=== PATIENT | male | born 1970 | race Two or more races ===

== ENCOUNTER → 2025-03-03 | Outpatient (CLI) | payer BC, SELFPAY ==
[2025-03-03 09:10] LABS: Alanine Aminotransferase 61 U/L (10-49); Albumin, Serum 4.6 gm/dL (3.5-5.0); Albumin/Globulin Ratio 1.6 (1.2-2.2); Alkaline Phosphatase 55 U/L (46-116); Anion Gap 9 (7-16); Aspartate Amino Transferase 48 U/L (0-34); BUN/Creatinine Ratio 13 Ratio (12-20); Bilirubin,Total 0.9 mg/dL (0.3-1.2); Blood Urea Nitrogen 13 mg/dL (9-23); Cardiac Risk Estimate 3.8 RATIO (4.0-6.7); Chloride 102 mMol/L (98-107); Cholesterol 182 mg/dL (132-200); Globulin 2.9 gm/dL (2.3-3.5); Glucose 119 mg/dL (74-106); HDL Cholesterol 48 mg/dL (40-60); LDL Cholesterol,Calculated 103 mg/dL (0-130); Osmolality,Calculated 276 (275-295); Potassium 5.7 mMol/L (3.4-5.1); Sodium 138 mMol/L (136-145); Thyroid Stimulating Hormone 0.49 uIU/mL (0.55-4.78); Total Protein 7.5 gm/dL (5.7-8.2); Triglycerides 154 mg/dL (30-150); eGFR > 60 See Note
== END | disposition home or self-care (01) ==
PROVIDERS: PCP Internal Medicine; Referring Provider Internal Medicine; Visit Provider Internal Medicine
DX: I10 Essential (primary) hypertension (principal); E78.5 Hyperlipidemia, unspecified; E03.9 Hypothyroidism, unspecified
CPT/HCPCS: 36415; 80053; 80061; 84443

== ENCOUNTER → 2025-05-07 | Outpatient (CLI) | payer BC, SELFPAY ==
[2025-05-07 11:39] LABS: Albumin, Serum 4.5 gm/dL (3.5-5.0); Anion Gap 11 (7-16); BUN/Creatinine Ratio 18 Ratio (12-20); Blood Urea Nitrogen 16 mg/dL (9-23); Calcium 9.4 mg/dL (8.3-10.6); Calcium (Corrected) 9.4 mg/dL (8.5-10.1); Carbon Dioxide 24.9 mMol/L (20.0-31.0); Chloride 103 mMol/L (98-107); Creatinine (Component) 0.9 mg/dL (0.6-1.3); Glucose 115 mg/dL (74-106); Osmolality,Calculated 279 (275-295); Phosphorous 2.8 mg/dL (2.4-5.1); Potassium 4.2 mMol/L (3.4-5.1); Sodium 139 mMol/L (136-145); eGFR > 60 See Note
== END | disposition home or self-care (01) ==
LOC: COPL 10:26
PROVIDERS: PCP Internal Medicine; Referring Provider Internal Medicine; Visit Provider Internal Medicine
DX: I10 Essential (primary) hypertension (principal)
CPT/HCPCS: 36415; 80069

== ENCOUNTER → 2025-09-23 | Outpatient (CLI) | payer BC, SELFPAY ==
[2025-09-23 08:10] LABS: Collection Type, Urine Clean Catch; Squamous Epithelial Cell,Urine 0 /hpf (0-5)
[2025-09-23 08:33] LABS: Basophils # (Auto) 0.0 Thou/mm3 (0.0-0.2); Basophils % (Auto) 1 % (0-2.5); Eosinophils # (Auto) 0.2 Thou/mm3 (0.0-0.5); Eosinophils % (Auto) 4 % (0-10); Hematocrit 46.3 % (41.0-53.0); Hemoglobin 15.7 g/dL (13.5-16.0); Immature Granulocytes Auto 0.02 Thou/mm3 (0.00-0.00); Lymphocytes # (Auto) 1.7 Thou/mm3 (1.0-4.8); Lymphocytes % (Auto) 25 % (10-50); Mean Corpuscular HGB Conc 33.9 g/dl (31.0-37.0); Mean Corpuscular Hemoglobin 28.8 pg (25.0-35.0); Mean Corpuscular Volume 85 fL (80-100); Monocytes # (Auto) 0.5 Thou/mm3 (0.0-0.8); Monocytes % (Auto) 8 % (0-12); Neutrophils # (Auto) 4.1 Thou/mm3 (1.8-7.7); Neutrophils % (Auto) 63 % (37-80); Nucleated Red Blood Cell # 0.00 Thou/mm3 (0.00-0.00); Nucleated Red Blood Cell % 0 /100 WBC (0); Platelet Count 216 Thou/mm3 (140-440); RDW Standard Deviation 40.2 fL (35.1-43.9); Red Blood Count 5.45 Miln/mm3 (4.50-5.90); White Blood Count 6.6 Thou/mm3 (3.8-10.6)
[2025-09-23 08:36] LABS: Bilirubin,Urine Negative (Negative); Blood,Urine Trace (Negative); Clarity,Urine Clear (Clear/Hazy); Color,Urine Lt-Yellow (Lt Yel-Yel); Glucose, Urine Negative (Negative); Ketones,Urine Negative (Negative); Leukocyte Esterase,Urine Negative (Negative); Nitrite,Urine Negative (Negative); PH,Urine 6.5 (5.0-7.0); Protein,Urine Negative (Neg - Trace); RBC,Urine 4 /hpf (0-3); Specific Gravity,Urine 1.016 (1.001-1.035); Urobilinogen,Urine Negative mg/dL (0.0-1.0); WBC,Urine < 1 /hpf (0-5)
[2025-09-23 08:42] LABS: Glucose Estimated Average 131 mg/dL (80-131); Hemoglobin A1C 6.2 % Hgb (4.8-6.0)
[2025-09-23 08:49] LABS: Prostate Specific Antigen 1.44 ng/mL (0-4.00)
[2025-09-23 08:52] LABS: Vitamin B12 509 pg/mL (211-911); Vitamin D 25 Hydroxy Total 29.2 ng/mL (7.3-40.2)
[2025-09-23 09:05] LABS: Alanine Aminotransferase 43 U/L (10-49); Albumin, Serum 4.6 gm/dL (3.5-5.0); Albumin/Globulin Ratio 1.5 (1.2-2.2); Alkaline Phosphatase 58 U/L (46-116); Aspartate Amino Transferase 27 U/L (0-34); BUN/Creatinine Ratio 16 Ratio (12-20); Bilirubin,Total 0.8 mg/dL (0.3-1.2); Blood Urea Nitrogen 14 mg/dL (9-23); Calcium 9.2 mg/dL (8.3-10.6); Calcium (Corrected) 9.2 mg/dL (8.5-10.1); Carbon Dioxide 26.6 mMol/L (20.0-31.0); Cardiac Risk Estimate 3.7 RATIO (4.0-6.7); Cholesterol 187 mg/dL (132-200); Creatinine (Component) 0.9 mg/dL (0.6-1.3); Globulin 3.0 gm/dL (2.3-3.5); Glucose 117 mg/dL (74-106); HDL Cholesterol 50 mg/dL (40-60); LDL Cholesterol,Calculated 107 mg/dL (0-130); Total Protein 7.6 gm/dL (5.7-8.2); Triglycerides 152 mg/dL (30-150); Uric Acid 6.9 mg/dL (3.7-9.2); eGFR > 60 See Note
[2025-09-23 12:24] LABS: Anion Gap 10 (7-16); Chloride 103 mMol/L (98-107); Free T4 (Free Thyroxine) 1.39 ng/dL (0.89-1.76); Osmolality,Calculated 280 (275-295); Potassium 4.1 mMol/L (3.4-5.1); Sodium 140 mMol/L (136-145); Thyroid Stimulating Hormone 0.44 uIU/mL (0.55-4.78)
== END | disposition home or self-care (01) ==
LOC: COPL 07:06
PROVIDERS: PCP Internal Medicine; Referring Provider Internal Medicine; Visit Provider Internal Medicine
DX: Z00.00 Encounter for general adult medical examination without abnormal findings (principal); I10 Essential (primary) hypertension; E78.5 Hyperlipidemia, unspecified; E03.9 Hypothyroidism, unspecified; Z12.5 Encounter for screening for malignant neoplasm of prostate
CPT/HCPCS: 36415; 80053; 80061; 81001; 82306; 82607; 83036; 84153; 84439; 84443; 84550; 85025